=== PATIENT | female | born 1970 | race Caucasian/White ===

== ENCOUNTER 2025-01-02 14:46 | Emergency (ER) | payer OTHER ==
[2025-01-02 15:10] VITALS: BP 135/84; PULSE 83; RESP 18; TEMP 98.1; BMI 32.7
[2025-01-02] MEDS ORDERED: LIDOCAINE 4% PATCH TP ONE (16:05)
[2025-01-02] MEDS: ACETAMINOPHEN 500 MG TABLET (FP) PO ONE (16:05)
[2025-01-02] MEDS: LIDOCAINE 4% PATCH TP ONE (16:05)
[2025-01-02] MEDS ORDERED: morphine CARPU-JECT 2 MG/1 ML DISP.SYRIN IM ONE (16:39)
[2025-01-02] MEDS ORDERED: LIDOCAINE PATCH REMOVAL MC ONE (22:00)
== END 2025-01-02 16:57 | disposition home or self-care (01) ==
LOC: JER 14:46
DX: M54.50 Low back pain, unspecified (principal)
CPT/HCPCS: 99283-25